=== PATIENT | male | born 1965 | race American Indian/Alaskan Native ===

== ENCOUNTER 2018-04-25 15:11 | Outpatient (CLI) | payer MEDICARE, OTHER ==
--- NOTE | 2018-04-26 08:13 | XRay Report ---
XRAY RIGHT SHOULDER THREE VIEWS: 04/25/18 15:11:00 CLINICAL: Right shoulder pain. FINDINGS: Normal glenohumeral alignment. Severe osteoarthritis of the glenohumeral joint with a large inferior humeral osteophyte and subchondral geodes of the glenoid and humeral head. Moderate acromioclavicular joint arthritis. No fracture or dislocation. No bone lesion. Normal soft tissues. 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
== END 2018-04-25 15:12 | disposition home or self-care (01) ==
LOC: SPVIMAG 15:11
PROVIDERS: ATTEND Orthopaedic Surgery Sports Medicine
DX: M19.011 Primary osteoarthritis, right shoulder (principal)